=== PATIENT | female | born 1940 | race Caucasian/White ===

== ENCOUNTER 2017-06-14 10:04 | Inpatient (IN) ==
[2017-06-14] MEDS ORDERED: SODIUM CHLORIDE 0.9% 1,000 ML IV STA (10:31)
[2017-06-14] MEDS ORDERED: DIPH/TET/ACEL PERT BOOSTER VACCINE 0.5 ML VIAL IM ONE ×2 (10:31→12:21)
[2017-06-14 11:45] LABS: Basophils % 0.2 % (0.0-0.8); Eosinophils % 0.1 % (0.00-10.9); Hematocrit 40.3 VOL% (35.7-47.0); Hemoglobin 13.8 GM/DL (12.0-16.0); Immature Granulocytes % 0.9 %; Immature Granulocytes Absolute 0.17 #; Lymphocytes # 1.5 10*3/uL (1.4-4.0); Lymphocytes % 7.6 % (21.3-54.2); Mean Corpuscular HGB Conc 34.2 GM/DL (32-36); Mean Corpuscular Hemoglobin 30 PG (27-34); Mean Corpuscular Volume 86.1 FL (87-102); Mean Platelet Volume 9.8 FL (9.6-12.0); Monocytes # 1.7 10*3/uL (0.11-0.8); Monocytes % 8.7 % (1.7-12.7); Neutrophils # 15.7 10*3/uL (1.4-7.4); Neutrophils % 82.5 % (38.7-73.9); Platelet Count 322 T/CUMM (130-400); Red Blood Count 4.68 MC/CUMM (3.8-5.5); Red Cell Distribution Width 12.6 % (9.3-17.3)
[2017-06-14 12:15] LABS: Albumin 3.6 G/DL (3.4-5.0); Bilirubin,Total 0.9 MG/DL (0.2-1.0); Calcium 9.3 MG/DL (8.5-10.1); Osmolality,Calculated 270.2 MOS/KG (273-304); Potassium 3.2 MMOL/L (3.5-5.1); Total Protein 7.1 G/DL (6.4-8.3)
[2017-06-14 13:04] LABS: Apearance,Urine CLEAR (Clear); Bacteria,Urine Occasional /HPF (Few); Bilirubin,Urine Negative (Negative); Blood, Urine Moderate mg/dL (Negative); Glucose,Urine (UA) 50 mg/dL (Negative); Ketones,Urine 20 mg/dL (Negative); Mucus,Urine Occasional /LPF (Occasional); Nitrite,Urine Negative (Negative); Protein,Urine >=500 MG/DL; RBC,Urine 1 /HPF (0-4); Squamous Epithelial Cell,Urine Occasional /HPF (0-10); Urine Color Yellow (Yellow); Urine Specific Gravity 1.018 (1.001-1.035); Urine Urobilinogen < 2.0 EU/DL (0.2-1.0); WBC,Urine 1 /HPF (0-6)
[2017-06-14] MEDS ORDERED: ACETAMINOPHEN 325 MG TABLET PO PRN (14:55)
[2017-06-14] MEDS ORDERED: ZALEPLON 5 MG CAPSULE PO PRN (14:55)
[2017-06-14] MEDS ORDERED: ONDANSETRON 4 MG/2 ML VIAL IV PRN (14:55)
[2017-06-14] MEDS: SODIUM CHLORIDE 0.9% 1,000 ML IV SCH (17:36)
[2017-06-14] MEDS: SERTRALINE 50 MG TABLET PO SCH (21:49)
[2017-06-14] MEDS: CARVEDILOL 6.25 MG TABLET PO SCH (21:49)
[2017-06-14] MEDS: ENOXAPARIN 40 MG/0.4 ML SYRINGE SUBCUT SCH (21:50)
[2017-06-14] MEDS: cefTRIAXone 2,000 MG in SYRINGE 1 EACH IV SCH (21:50)
[2017-06-15] MEDS: SODIUM CHLORIDE 0.9% 1,000 ML IV SCH ×2 (06:42→11:14)
[2017-06-15 06:47] LABS: Basophils % 0.3 % (0.0-0.8); Eosinophils % 0.3 % (0.00-10.9); Hematocrit 33.4 VOL% (35.7-47.0); Hemoglobin 11.8 GM/DL (12.0-16.0); Immature Granulocytes % 0.4 %; Immature Granulocytes Absolute 0.04 #; Lymphocytes # 2.2 10*3/uL (1.4-4.0); Lymphocytes % 19.2 % (21.3-54.2); Mean Corpuscular HGB Conc 35.3 GM/DL (32-36); Mean Corpuscular Hemoglobin 30 PG (27-34); Mean Corpuscular Volume 84.1 FL (87-102); Mean Platelet Volume 10.3 FL (9.6-12.0); Monocytes # 1.3 10*3/uL (0.11-0.8); Monocytes % 11.4 % (1.7-12.7); Neutrophils # 7.7 10*3/uL (1.4-7.4); Neutrophils % 68.4 % (38.7-73.9); Platelet Count 278 T/CUMM (130-400); Red Blood Count 3.97 MC/CUMM (3.8-5.5); Red Cell Distribution Width 12.6 % (9.3-17.3); White Blood Count 11.2 T/CUMM (4-12)
[2017-06-15 07:19] LABS: Albumin 2.9 G/DL (3.4-5.0); Bilirubin,Total 1.2 MG/DL (0.2-1.0); Calcium 8.4 MG/DL (8.5-10.1); Osmolality,Calculated 279.4 MOS/KG (273-304); Potassium 3.2 MMOL/L (3.5-5.1); Total Protein 5.5 G/DL (6.4-8.3)
[2017-06-15] MEDS: CARVEDILOL 6.25 MG TABLET PO SCH ×2 (10:45→21:54)
[2017-06-15] MEDS: POTASSIUM CHLORIDE 20 MEQ TABLET PO SCH (10:45)
[2017-06-15] MEDS: TAMOXIFEN 10 MG TABLET PO SCH (10:46)
[2017-06-15] MEDS: amLODIPine 2.5 MG TABLET PO SCH (10:47)
[2017-06-15] MEDS: PANTOPRAZOLE 40 MG TABLET PO SCH (10:47)
[2017-06-15] MEDS ORDERED: POTASSIUM CHLORIDE 20 MEQ TABLET PO ONE (11:44)
[2017-06-15] MEDS: CYPROHEPTADINE 4 MG TABLET PO SCH ×2 (15:42→21:54)
[2017-06-15] MEDS: ENOXAPARIN 40 MG/0.4 ML SYRINGE SUBCUT SCH (21:53)
[2017-06-15] MEDS: cefTRIAXone 2,000 MG in SYRINGE 1 EACH IV SCH (21:53)
[2017-06-15] MEDS: SERTRALINE 50 MG TABLET PO SCH (21:54)
[2017-06-16 06:34] LABS: Basophils % 0.5 % (0.0-0.8); Eosinophils # 0.3 10*3/uL (0.0-0.87); Eosinophils % 3.4 % (0.00-10.9); Hematocrit 32.2 VOL% (35.7-47.0); Hemoglobin 10.9 GM/DL (12.0-16.0); Immature Granulocytes % 0.4 %; Immature Granulocytes Absolute 0.03 #; Lymphocytes # 2.8 10*3/uL (1.4-4.0); Lymphocytes % 38.2 % (21.3-54.2); Mean Corpuscular HGB Conc 33.9 GM/DL (32-36); Mean Corpuscular Hemoglobin 29 PG (27-34); Mean Corpuscular Volume 86.1 FL (87-102); Mean Platelet Volume 10.3 FL (9.6-12.0); Monocytes # 0.9 10*3/uL (0.11-0.8); Monocytes % 12.4 % (1.7-12.7); Neutrophils # 3.3 10*3/uL (1.4-7.4); Neutrophils % 45.1 % (38.7-73.9); Platelet Count 251 T/CUMM (130-400); Red Blood Count 3.74 MC/CUMM (3.8-5.5); Red Cell Distribution Width 12.8 % (9.3-17.3); White Blood Count 7.3 T/CUMM (4-12)
[2017-06-16 06:36] LABS: Basophils # 0.1 10*3/uL (0.0-0.2); Eosinophils # 0.2 10*3/uL (0.0-0.87); Eosinophils % 3.1 % (0.00-10.9); Hematocrit 31.9 VOL% (35.7-47.0); Hemoglobin 11.3 GM/DL (12.0-16.0); Immature Granulocytes % 0.3 %; Immature Granulocytes Absolute 0.02 #; Lymphocytes # 2.9 10*3/uL (1.4-4.0); Mean Corpuscular HGB Conc 35.4 GM/DL (32-36); Mean Corpuscular Hemoglobin 30 PG (27-34); Mean Corpuscular Volume 84.6 FL (87-102); Mean Platelet Volume 10.2 FL (9.6-12.0); Monocytes # 0.9 10*3/uL (0.11-0.8); Monocytes % 12.3 % (1.7-12.7); Neutrophils # 3.3 10*3/uL (1.4-7.4); Neutrophils % 44.3 % (38.7-73.9); Platelet Count 250 T/CUMM (130-400); Red Blood Count 3.77 MC/CUMM (3.8-5.5); Red Cell Distribution Width 12.8 % (9.3-17.3); White Blood Count 7.3 T/CUMM (4-12)
[2017-06-16] MEDS: SODIUM CHLORIDE 0.9% 1,000 ML IV SCH ×2 (06:47→09:05)
[2017-06-16 07:10] LABS: Calcium 8.5 MG/DL (8.5-10.1); Osmolality,Calculated 286.7 MOS/KG (273-304); Potassium 3.3 MMOL/L (3.5-5.1)
[2017-06-16 07:41] LABS: Sedimentation Rate-Westergren 43 MM/HR (0-30)
[2017-06-16 07:58] LABS: % Iron Saturation 39.8 % (18-50)
[2017-06-16] MEDS: CYPROHEPTADINE 4 MG TABLET PO SCH ×3 (09:04→21:43)
[2017-06-16] MEDS: CARVEDILOL 6.25 MG TABLET PO SCH ×2 (09:04→21:44)
[2017-06-16] MEDS: POTASSIUM CHLORIDE 20 MEQ TABLET PO SCH ×2 (09:04→21:44)
[2017-06-16] MEDS: CHOLECALCIFEROL 1,000 UNIT TABLET PO SCH (09:04)
[2017-06-16] MEDS: PANTOPRAZOLE 40 MG TABLET PO SCH (09:05)
[2017-06-16] MEDS: amLODIPine 2.5 MG TABLET PO SCH (09:06)
[2017-06-16] MEDS: TAMOXIFEN 10 MG TABLET PO SCH (09:06)
[2017-06-16 11:35] LABS: Folate 11.8 NG/ML (5.4-24.0); Vitamin B12 820 PG/ML (211-911)
[2017-06-16] MEDS: ASPIRIN EC 81 MG TABLET PO SCH (14:09)
[2017-06-16] MEDS: BACITRACIN OINT 0.9 GM PACK TOP SCH (16:22)
[2017-06-16] MEDS: cefTRIAXone 2,000 MG in SYRINGE 1 EACH IV SCH (20:40)
[2017-06-16] MEDS: DRONABINOL 2.5 MG CAPSULE PO SCH (21:43)
[2017-06-16] MEDS: SERTRALINE 50 MG TABLET PO SCH (21:44)
[2017-06-16] MEDS: ENOXAPARIN 40 MG/0.4 ML SYRINGE SUBCUT SCH (21:44)
[2017-06-17] MEDS: SODIUM CHLORIDE 0.9% 1,000 ML IV SCH ×3 (06:15→22:53)
[2017-06-17] MEDS: DRONABINOL 2.5 MG CAPSULE PO SCH ×2 (09:31→22:52)
[2017-06-17] MEDS: TAMOXIFEN 10 MG TABLET PO SCH (09:31)
[2017-06-17] MEDS: CARVEDILOL 6.25 MG TABLET PO SCH ×2 (09:31→22:52)
[2017-06-17] MEDS: CHOLECALCIFEROL 1,000 UNIT TABLET PO SCH (09:31)
[2017-06-17] MEDS: CYPROHEPTADINE 4 MG TABLET PO SCH ×3 (09:31→22:52)
[2017-06-17] MEDS: ASPIRIN EC 81 MG TABLET PO SCH (09:32)
[2017-06-17] MEDS: BACITRACIN OINT 0.9 GM PACK TOP SCH (09:32)
[2017-06-17] MEDS: POTASSIUM CHLORIDE 20 MEQ TABLET PO SCH ×2 (09:32→22:53)
[2017-06-17] MEDS: PANTOPRAZOLE 40 MG TABLET PO SCH (09:32)
[2017-06-17] MEDS: amLODIPine 2.5 MG TABLET PO SCH (09:59)
[2017-06-17] MEDS: cefTRIAXone 2,000 MG in SYRINGE 1 EACH IV SCH (20:52)
[2017-06-17] MEDS: SERTRALINE 50 MG TABLET PO SCH (22:52)
[2017-06-17] MEDS: ENOXAPARIN 40 MG/0.4 ML SYRINGE SUBCUT SCH (22:53)
[2017-06-18] MEDS: SODIUM CHLORIDE 0.9% 1,000 ML IV SCH ×2 (02:57→11:18)
[2017-06-18 05:06] VITALS: BP 153/76
[2017-06-18 06:01] LABS: Basophils # 0.1 10*3/uL (0.0-0.2); Basophils % 0.8 % (0.0-0.8); Eosinophils # 0.4 10*3/uL (0.0-0.87); Eosinophils % 5.8 % (0.00-10.9); Hemoglobin 11.2 GM/DL (12.0-16.0); Immature Granulocytes % 0.5 %; Immature Granulocytes Absolute 0.04 #; Lymphocytes # 2.3 10*3/uL (1.4-4.0); Lymphocytes % 29.9 % (21.3-54.2); Mean Corpuscular HGB Conc 33.9 GM/DL (32-36); Mean Corpuscular Hemoglobin 30 PG (27-34); Mean Platelet Volume 10.5 FL (9.6-12.0); Monocytes # 0.8 10*3/uL (0.11-0.8); Monocytes % 10.8 % (1.7-12.7); Neutrophils # 3.9 10*3/uL (1.4-7.4); Neutrophils % 52.2 % (38.7-73.9); Platelet Count 285 T/CUMM (130-400); Red Blood Count 3.75 MC/CUMM (3.8-5.5); Red Cell Distribution Width 13.1 % (9.3-17.3); White Blood Count 7.6 T/CUMM (4-12)
[2017-06-18 06:33] LABS: Calcium 9.1 MG/DL (8.5-10.1)
[2017-06-18] MEDS: POTASSIUM CHLORIDE 20 MEQ TABLET PO SCH (08:34)
[2017-06-18] MEDS: TAMOXIFEN 10 MG TABLET PO SCH (08:34)
[2017-06-18] MEDS: BACITRACIN OINT 0.9 GM PACK TOP SCH (08:34)
[2017-06-18] MEDS: CHOLECALCIFEROL 1,000 UNIT TABLET PO SCH (08:35)
[2017-06-18] MEDS: PANTOPRAZOLE 40 MG TABLET PO SCH (08:35)
[2017-06-18] MEDS: ASPIRIN EC 81 MG TABLET PO SCH (08:35)
[2017-06-18] MEDS: CARVEDILOL 6.25 MG TABLET PO SCH (08:35)
[2017-06-18] MEDS: CYPROHEPTADINE 4 MG TABLET PO SCH (08:35)
[2017-06-18] MEDS: amLODIPine 2.5 MG TABLET PO SCH (08:35)
[2017-06-18] MEDS: DRONABINOL 2.5 MG CAPSULE PO SCH (08:42)
== END 2017-06-18 13:44 | disposition swing bed (61) | DRG 566 ==
LOC: EDUNIT# → EDBD → N.EDINP 10:04 → N.ED 10:04 → N.5E 16:25
PROVIDERS: ADMIT Hospitalist; ATTEND Hospitalist